=== PATIENT | female | born 1950 | race Caucasian/White ===

== ENCOUNTER → 2019-08-30 | Outpatient (CLI) | payer MEDICARE, OTHER ==
--- NOTE | 2019-08-30 12:23 | RAD ---
Examination: US GUID NDL PLACE/ASPI/BX, DIGITAL DIAGNOSTIC RT History: Left upper outer breast mass and calcifications Comparison/Correlation: 08/11/2019 right breast ultrasound and diagnostic mammogram Findings: Risks, benefits, and alternatives regarding right upper outer breast ultrasound-guided core biopsy with clip marker placement were discussed with the patient and informed consent was obtained. Cleansing with ChloraPrep at the anticipated site of needle placement was performed. Sterile draping, sterile gel, and sterile probe cover is were utilized. Approximately 7 of 1 percent lidocaine was administered subcutaneously and along the expected course of the needle tracks. Medial approach was utilized. Scalpel incision was made. Introducer was placed under ultrasound guidance into the mass directed toward the hypoechoic right breast 2:00 region mass 5 cm from the nipple. A total of 6 passes were made with 12-gauge core biopsy needle via the introducer. Some of the specimens were small and friable. Clip marker was then placed via the introducer. The patient tolerated procedure well without immediate complications. Right mediolateral, MLO, and CC images were acquired to assess for marker placement. The clip markers not easily distinguished from the calcifications present within the upper inner breast. It appears to be central within the lower aspect of the calcifications present. No hematoma. Impression: Successful right upper outer breast 2:00 region mass biopsy by ultrasound guidance. Electronically signed by: Raffi Carrillo MD (08/30/2019 12:20 PM) [id number]
--- NOTE | 2019-08-31 16:06 | PATHOLOGY ---
[facility] Accession Number: [id number] . 01 Material submitted: . breast - RIGHT BREAST, 2:00, 5CMFN. Modifiers: right, 2:00 . 01 Clinical history: . Right breast mass biopsy . 02 Diagnosis: Breast tissue, right breast mass 2:00 needle biopsies: - Nodular and confluent dense stromal sclerosis with focal chronic inflammation and coarse calcifications. (JPM:yasmani; 08/31/2019) QMS 08/31/2019 1419 Local . 02 Comment: There is no evidence of malignancy. . 02 Electronically signed: . Sam Barcenas MD, Pathologist NPI- [id number] . 01 Gross description: . The specimen is received in formalin, labeled "Laura Hernández, right breast 2:00 5 cm from nipple". Received are multiple needle cores of fibrofatty tissue measuring 1.2 x 1.1 x 0.2 cm in aggregate dimensions. The specimen is submitted entirely in cassettes A1 through A3. The cold ischemic time is 6 minutes. The total formalin fixation time is 12 hours and 59 minutes. ([facility]; 08/30/2019) QAC/QAC 08/30/2019 1613 Local . 02 Pathologist provided ICD-10: N60.31, N61.0 . 02 CPT . 697546 Specimen Comment: A courtesy copy of this report has been sent to [phone], [phone] Specimen Comment: [phone] Specimen Comment: Report sent to / DR CAIN Performed at: 01 [facility] [address], [place], [place] [id number] MD Bjorn Calero MD Phone: [phone] Performed at: 02 [facility] [address] [place], [place] [id number] MD Sam Barcenas MD Phone: [phone]
== END | disposition home or self-care (01) ==
LOC: US 14:45
PROVIDERS: ATTEND Family Medicine
DX: R92.8 Other abnormal and inconclusive findings on diagnostic imaging of breast (principal); R92.1 Mammographic calcification found on diagnostic imaging of breast; N61.0 Mastitis without abscess
CPT/HCPCS: 19083; 77065; 88305; C1713; 19081; 76942